=== PATIENT | female | born 1960 | race Caucasian/White ===

== ENCOUNTER 2017-08-19 06:23 | Emergency (ER) | payer BC, OTHER ==
[2017-08-19] MEDS ORDERED: NS 0.9% 1000 ML* 2,000 ML IV ONE (06:51)
--- NOTE | 2017-08-19 06:59 | ED ---
Magnus Melgar Abhishek, scribed for Jonathan Hastings MD on 08/19/17 at 0653 . Syncope/Near Syncope - HPI Summary HPI Summary: This patient is a 57 year old F [facility] [place] by female with a chief complaint of syncope since 0600. There were two separate episodes. The first episode lasted 10 minutes and the second episode last 2 minutes. The pt states she currently has a sinus infection. The patient rates the pain 0/10 in severity. Symptoms aggravated by nothing. Symptoms alleviated by nothing. Patient reports confusion, tremors, and coughing. Patient denies chest pain, abd pain, hematochezia, and hematuria. According to the pt, everything started to go out of focus and the pts friend stated the pt started talking funny. No fall was reported. - History Of Current Complaint Chief Complaint: EDSyncope Time Seen by Provider: 08/19/17 06:26 Hx Obtained From: Patient Timing: Frequency Of Episodes - 2 times Context: Witnessed Activity At Onset: Other - talking to friend Aggravating Factor(s): Nothing Alleviating Factor(s): Nothing Associated Signs And Symptoms: Other - confusion, tremors and coughing. Negative chest pain, abd pain, hematochezia, and hematuria Frequency: Episodes x___ - 2, Episodes Lasting ____ (in Mins/Days/Weeks/Years) - first episode 10 minutes, second episode 2 minutes PMH/Surg Hx/FS Hx/Imm Hx Endocrine/Hematology History: Denies: Hx Diabetes Cardiovascular History: Denies: Other Cardiovascular Problems/Disorders Musculoskeletal History: Reports: Other Musculoskeletal History - arthritis Opthamlomology History: Denies: Hx Legally Blind EENT History: Denies: Hx Deafness Infectious Disease History: No Infectious Disease History: Reports: Traveled Outside the [place] in Last 30 Days - Family History Known Family History: Positive: Cardiac Disease, Diabetes - Social History Alcohol Use: None Substance Use Type: Reports: None Smoking Status (MU): Heavy Every Day Tobacco Smoker Review of Systems Constitutional: Negative Eyes: Negative ENT: Negative Negative: Chest Pain Positive: Cough Gastrointestinal: Other - Negative hematochezia Negative: Abdominal Pain Negative: hematuria Musculoskeletal: Negative Skin: Negative Neurological: Other - confusion and tremors Positive: Syncope Psychological: Normal All Other Systems Reviewed And Are Negative: Yes Physical Exam - Summary Physical Exam Summary: General: well-appearing, no pain distress Skin: warm, color reflects adequate perfusion, dry Head: normal Eyes: EOMI, MICHELA ENT: normal Neck: supple, nontender Respiratory: CTA, breath sounds present Cardiovascular: RRR Abdomen: soft, nontender Bowel: present Musculoskeletal: normal, strength/ROM intact Neurological: normal, sensory/motor intact, A&O x3 Psychological: affect/mood appropriate Triage Information Reviewed: Yes Vital Signs On Initial Exam: Initial Vitals Temp Pulse Resp BP Pulse Ox 97.2 F 73 18 126/75 97 08/19/17 06:24 08/19/17 06:24 08/19/17 06:24 08/19/17 06:24 08/19/17 06:24 Vital Signs Reviewed: Yes - Fl[place] Coma Scale Coma Scale Total: 15 Diagnostics - Vital Signs Vital Signs Temp Pulse Resp BP Pulse Ox 08/19/17 06:24 97.2 F 73 18 126/75 97 - Laboratory Lab Statement: Any lab studies that have been ordered have been reviewed, and results considered in the medical decision making process. Course/Dx Course Of Treatment: DISPOSITION PENDING AT SHIFT CHANGE - Diagnoses Provider Diagnoses: Syncope Discharge - Discharge Plan Condition: Stable Disposition: OTHER Discharge Disposition Comment: . Referrals: No Primary Care Phys,NOPCP [Primary Care Provider] - The documentation as recorded by the Magnus coker Abhishek accurately reflects the service I personally performed and the decisions made by me, Jonathan Hastings MD.
[2017-08-19 07:24] LABS: ABS Basophils 0.1 10^3/ul (0-0.2); ABS Eosinophils 0 10^3/ul (0-0.6); ABS Monocytes 0.6 10^3/ul (0-0.8); ABS Neutrophils 4.2 10^3/ul (1.5-7.7); ABS Nucleated RBC 0 10^3/ul; Eosinophil % 0.4 % (0-6); Hematocrit 40 % (35-47); Hemoglobin 13.8 g/dl (12.0-16.0); Lymphocyte % 16.8 % (25-47); Mean Corpuscular HGB Conc 34 g/dl (31-36); Mean Corpuscular Hemoglobin 30 pg (27-31); Mean Corpuscular Volume 88 fL (80-97); Mean Platelet Volume 9 um3 (7.4-10.4); Nucleated Red Blood Cells % 0; Platelet Count 212 10^3/ul (150-450); Red Blood Count 4.57 10^6/ul (4.0-5.4); Red Cell Distribution Width 13 % (10.5-15); White Blood Count 5.8 10^3/ul (3.5-10.8)
[2017-08-19 07:26] LABS: Urine Appearance Cloudy; Urine Blood Negative (Negative); Urine Color Yellow; Urine Ketones Negative (Negative); Urine Protein Negative (Negative); Urine Specific Gravity 1.017 (1.010-1.030); Urine Urobilinogen Negative (Negative)
[2017-08-19 07:32] LABS: INR 0.96 (0.77-1.02)
[2017-08-19 07:42] LABS: EGFR Non-African American 80.2 (>60)
--- NOTE | 2017-08-19 08:16 | RAD ---
INDICATION: Syncope and difficulty with speech COMPARISON: None. TECHNIQUE: Contiguous axial sections of the brain were obtained from the skull base to the vertex without contrast. FINDINGS: The ventricles, cisterns and sulci are within normal limits. The moralez-white matter differentiation is adequately maintained and there is no sulcal effacement. No significant focal abnormality or mass effect is present. There is no evidence for intracranial hemorrhage. Incidental note is made of hyperostosis frontalis interna. No significant focal osseous abnormality is present. There are fluid levels in the left maxillary sinus. There is mild mucosal thickening of the bilateral ethmoid air cells as well as bilateral sphenoid sinuses. The mastoid air cells are well aerated bilaterally. IMPRESSION: 1. No CT evidence of territorial infarction or other acute intracranial abnormality. 2. Paranasal sinus mucosal disease.
--- NOTE | 2017-08-19 08:28 | RAD ---
INDICATION: Syncope COMPARISON: None. TECHNIQUE: Single AP portable view of the chest was obtained. FINDINGS: Image quality is compromised due to the relative inferiority of a portable chest x-ray. The heart and mediastinum exhibit normal size and contour. The lungs are grossly clear. There is no evidence of a large pleural effusion. Visualized bones are normal for the patient's age. IMPRESSION: No radiographic evidence for acute cardiopulmonary abnormality on this portable chest x-ray.
--- NOTE | 2017-08-19 08:52 | ED ---
Amparo Melgar Gabriel, scribed for Nickolas Garner MD on 08/19/17 at 0803 . Progress - Progress Note Progress Note: This patient was signed out from , awaiting imagining and disposition. CT brain reveals, per radiologist, 1. No CT evidence of territorial infarction or other acute intracranial abnormality. 2. Paranasal sinus mucosal disease. ED physician has reviewed this radiology report. CXR reveals, per radiologist No radiographic evidence for acute cardiopulmonary abnormality on this portable chest x-ray. ED physician has reviewed this radiology report. Course/Dx - Course Course Of Treatment: Pt feels well, no prior episodes, denies any chest pain, SOB, or palps. CT and XR negative, no acute chagnes on EKG. Pt instructed to avoid driving in the next 2-3 days and to return to the ED for any worsening or concerning sxs. also instructed to fu with caridologist upon any repeat episodes. The features of the episode are inconsistent with any seizure activity. - Diagnoses Provider Diagnoses: Syncope The documentation as recorded by the Amparo coker Gabriel accurately reflects the service I personally performed and the decisions made by Patsy leavitt Dong, MD.
[2017-08-19 09:06] VITALS: BP 121/74
== END 2017-08-19 09:05 | disposition home or self-care (01) ==
LOC: ED 06:23
DX: R55 Syncope and collapse (principal); R41.0 Disorientation, unspecified; R05 Cough; F17.210 Nicotine dependence, cigarettes, uncomplicated
CPT/HCPCS: 36415; 70450; 71045; 80053; 81003; 82553; 83605; 83690; 83735; 83880; 84443; 84484; 85025; 85610; 85730; 86140; 93005; 99283